=== PATIENT | female | born 1960 | race Caucasian/White ===

== ENCOUNTER 2017-10-26 18:44 | Inpatient (IN) | payer BC ==
[~2017-10-26] VITALS: Ht 157.5 cm; Wt 63.5 kg
[2017-10-26 19:59] LABS: BASOPHIL % 0.2 % (0-2); PLATELET COUNT 276 x10^3mcL (130-400); RED CELL DISTRIBUTION WIDTH 13.6 % (11.5-14.5)
[2017-10-26 20:23] LABS: CALCIUM 9.5 mg/dL (8.5-10.1); CARBON DIOXIDE 25.8 mmol/L (21-32); CHLORIDE SERUM 101 mmol/L (98-107); CREATININE SERUM 0.8 mg/dL (0.6-1.0); GFR1 > 60 mL/min; GLUCOSE SERUM 225 mg/dL (74-106); POTASSIUM SERUM 3.8 mmol/L (3.5-5.1); SODIUM SERUM 137 mmol/L (136-145)
[2017-10-26 20:25] LABS: ALKALINE PHOSPHATASE 392 U/L (46-116); ALT/SGPT 422 U/L (14-59); AST/SGOT 262 U/L (15-37); BILIRUBIN TOTAL 5.23 mg/dL (0.20-1.00); TOTAL PROTEIN, SERUM 7.8 g/dL (6.4-8.2)
[2017-10-26 20:28] LABS: AMYLASE 903 U/L (25-115)
[2017-10-26 21:03] LABS: LIPASE 18848 IU/L (73-393)
[2017-10-26] MEDS ORDERED: GLIPIZIDE5 M2 PO (21:47)
[2017-10-26] MEDS ORDERED: METFORMIN HCL1000 MG PO (21:47)
[2017-10-26 23:28] VITALS: BP 162/92
[2017-10-27 02:46] LABS: MAGNESIUM 2.1 mg/dL (1.8-2.4); PHOSPHOROUS 3.3 mg/dL (2.5-4.9)
[2017-10-27 04:23] LABS: T3 TOTAL 0.9 ng/mL
[2017-10-27 04:54] LABS: FREE T4 1.22 ng/dL (0.76-1.46); FREE THYROXINE INDEX 3.1 ug/dL (1.4-4.5); T4(THYROXINE) 9.8 ug/dL (4.7-13.3)
[2017-10-27 05:46] VITALS: BP 128/68
[2017-10-27 08:41] VITALS: BP 145/80
[2017-10-27 10:33] LABS: AMPHETAMINE QUAL UR NONE DETECTED (See below)
[2017-10-27 10:53] LABS: microscopic required? YES; urine erythrocyte 2+ (NEGATIVE)
[2017-10-27 12:09] VITALS: BP 145/82
[2017-10-27 13:22] LABS: ALBUMIN 3.5 g/dL (3.4-5.0); BILIRUBIN DIRECT 3.62 mg/dL (0.0-0.2); BILIRUBIN TOTAL 5.06 mg/dL (0.20-1.00); TOTAL PROTEIN, SERUM 6.7 g/dL (6.4-8.2)
[2017-10-27 17:47] VITALS: BP 155/78
[2017-10-27 20:44] VITALS: BP 158/79
[2017-10-28 05:29] VITALS: BP 119/74
[2017-10-28 05:55] LABS: BASOPHIL % 0.5 % (0-2); PLATELET COUNT 219 x10^3mcL (130-400); RED CELL DISTRIBUTION WIDTH 14.1 % (11.5-14.5)
[2017-10-28 06:45] LABS: ALBUMIN 3.3 g/dL (3.4-5.0); ALKALINE PHOSPHATASE 344 U/L (46-116); ALT/SGPT 275 U/L (14-59); AST/SGOT 106 U/L (15-37); BILIRUBIN DIRECT 0.97 mg/dL (0.0-0.2); BILIRUBIN TOTAL 2.56 mg/dL (0.20-1.00); CALCIUM 8.7 mg/dL (8.5-10.1); CARBON DIOXIDE 27.4 mmol/L (21-32); CHLORIDE SERUM 107 mmol/L (98-107); CREATININE SERUM 0.8 mg/dL (0.6-1.0); GFR1 > 60 mL/min; GLUCOSE SERUM 204 mg/dL (74-106); POTASSIUM SERUM 3.7 mmol/L (3.5-5.1); SODIUM SERUM 143 mmol/L (136-145); TOTAL PROTEIN, SERUM 6.7 g/dL (6.4-8.2)
[2017-10-28 09:37] VITALS: BP 132/64
[2017-10-28 13:47] VITALS: BP 138/74
[2017-10-28 18:13] VITALS: BP 151/70
[2017-10-28 20:47] VITALS: BP 132/60
[2017-10-29 05:22] VITALS: BP 130/73
[2017-10-29 06:12] LABS: BASOPHIL % 0.5 % (0-2); PLATELET COUNT 232 x10^3mcL (130-400); RED CELL DISTRIBUTION WIDTH 14.1 % (11.5-14.5)
[2017-10-29 06:29] LABS: ALKALINE PHOSPHATASE 303 U/L (46-116); ALT/SGPT 194 U/L (14-59); AST/SGOT 53 U/L (15-37); BILIRUBIN DIRECT 0.66 mg/dL (0.0-0.2); BILIRUBIN TOTAL 2.3 mg/dL (0.20-1.00); CALCIUM 8.3 mg/dL (8.5-10.1); CARBON DIOXIDE 28.9 mmol/L (21-32); CHLORIDE SERUM 107 mmol/L (98-107); CREATININE SERUM 0.7 mg/dL (0.6-1.0); GFR1 > 60 mL/min; GLUCOSE SERUM 171 mg/dL (74-106); LIPASE 426 IU/L (73-393); MAGNESIUM 1.8 mg/dL (1.8-2.4); POTASSIUM SERUM 3.5 mmol/L (3.5-5.1); SODIUM SERUM 144 mmol/L (136-145); TOTAL PROTEIN, SERUM 6.8 g/dL (6.4-8.2)
[2017-10-29 06:39] LABS: ALBUMIN 3.2 g/dL (3.4-5.0)
[2017-10-29 08:36] VITALS: BP 153/68
[2017-10-29 11:50] VITALS: BP 142/82
[2017-10-29] MEDS ORDERED: ACT300 PO (12:00)
[2017-10-29 17:50] VITALS: BP 157/74
[2017-10-29 19:43] VITALS: Ht 157.5 cm; Wt 63.5 kg
[2017-10-29 20:56] VITALS: BP 158/87
[2017-10-30 05:27] VITALS: BP 141/78
[2017-10-30 06:18] LABS: ALBUMIN 3.4 g/dL (3.4-5.0); ALKALINE PHOSPHATASE 366 U/L (46-116); ALT/SGPT 250 U/L (14-59); AST/SGOT 182 U/L (15-37); BILIRUBIN DIRECT 1.66 mg/dL (0.0-0.2); BILIRUBIN TOTAL 3.09 mg/dL (0.20-1.00); CALCIUM 9.1 mg/dL (8.5-10.1); CARBON DIOXIDE 27.4 mmol/L (21-32); CHLORIDE SERUM 105 mmol/L (98-107); CREATININE SERUM 0.7 mg/dL (0.6-1.0); GFR1 > 60 mL/min; GLUCOSE SERUM 175 mg/dL (74-106); MAGNESIUM 2.2 mg/dL (1.8-2.4); POTASSIUM SERUM 3.4 mmol/L (3.5-5.1); SODIUM SERUM 141 mmol/L (136-145); TOTAL PROTEIN, SERUM 7.1 g/dL (6.4-8.2)
[2017-10-30 06:24] LABS: BASOPHIL % 0.4 % (0-2); PLATELET COUNT 255 x10^3mcL (130-400); RED CELL DISTRIBUTION WIDTH 13.7 % (11.5-14.5)
[2017-10-30 09:28] VITALS: BP 153/85
== END 2017-10-30 10:54 | disposition home or self-care (01) | DRG 440 ==
LOC: ED 18:44 → DU 21:43
PROVIDERS: Internal Medicine; Internal Medicine Gastroenterology; Internal Medicine Pulmonary Disease; Specialist
PROC: 0F798ZZ Dilation of Common Bile Duct, Via Natural or Artificial Opening Endoscopic (ICD-10-PCS; principal; 2017-10-29 10:30)
PROC: BF101ZZ Fluoroscopy of Bile Ducts using Low Osmolar Contrast (ICD-10-PCS; 2017-10-29 10:30)
DX: K85.90 Acute pancreatitis without necrosis or infection, unspecified (principal); E11.65 Type 2 diabetes mellitus with hyperglycemia; E78.1 Pure hyperglyceridemia; Z79.84 Long term (current) use of oral hypoglycemic drugs; Z82.5 Family history of asthma and other chronic lower respiratory diseases; Z80.3 Family history of malignant neoplasm of breast; Z90.49 Acquired absence of other specified parts of digestive tract; Z80.0 Family history of malignant neoplasm of digestive organs; K74.3 Primary biliary cirrhosis; I10 Essential (primary) hypertension
CPT/HCPCS: 36600; 43262; 78226; 83516; 83880; 84439; A9537; C1769; J0295; J1200; J1610; J2250; J2270; J2405; J3475; J3480; J3490; J7030; Q0092; Q9967